=== PATIENT | female | born 1990 | race Caucasian/White ===

== ENCOUNTER 2021-11-18 17:23 | Inpatient (IN) | payer OTHER, SELFPAY ==
[2021-11-18 17:40] VITALS: RESP 16; TEMP 37.3
[2021-11-18 17:41] VITALS: BP 110/63; PULSE 85
[2021-11-18 17:44] VITALS: PULSE 82; O2SAT 97
[2021-11-18 18:06] VITALS: BMI 26.2
--- NOTE | 2021-11-18 18:23 | PM.OBHPLI ---
OB - H&P: HPI Labor/Induction History of Present Illness Time Seen by Provider: 18:00 Date Seen: 11/18/21 Chief Complaint: The patient is a 30 year old G1 para at 40 6/7 weeks gestation by LMP consistent with 10week US, who presents for postdates induction. Chief complaint: Maternity : 1 Para: 0 Date of last menstrual period: 02/05/21 Estimated date of delivery: 11/12/21 Gestational age based on last menstrual period: 40 Indications for induction: other (postdates induction) Narrative: Lisa Castillo is a 30 year old G1 female at 40 6/7 wks gestation who has been feeling well without concerns. Occasional 'tightening' nothing regular or painful. No LOF. No bleeding. No headaches or vision changes. Good FM. Has felt well, no recent illness History of Present Dating criteria: based on LMP Ultrasounds: normal mid trimester US and abnormal US findings (see below regarding 1st trimester US findings) Abnormal ultrasound findings: 1st trimester dating US done at [facility] showing 'possible thickening nuchal translucency'. pt saw [facility] and had NT US that was within normal limits. Prior initial US was thought to be done too early to technically measure nuchal translucency and NT US at [facility] was normal in appropriate timeframe. Narrative: presumed pyelonephritis 06/27/21, treated with rocephin 2 days and 14 days total abxs. No recurrence. Labs Blood type: A (+) positive Rubella: immune RPR/VDLR: nonreactive GBS status: negative HBsAG: negative Meds Home Medications and Allergies Home Medication Comments: PNV daily, Ferrous sulfate 325mg qod Allergies Allergy/AdvReac Type Severity Reaction Status Date / Time No Known Drug Allergies Allergy Verified 11/18/21 18:43 OB - H&P: Exam Physical Exam: Vital signs: Pulse BP Pulse Ox 85 110/63 97 11/18/21 17:41 11/18/21 17:41 11/18/21 17:44 Constitutional: Constitutional: no acute distress Routine HEENT Exam: Head: Present atraumatic, normal inspection and normocephalic Eye: Present normal appearance Comments: wearing mask Routine Respiratory Exam: Respiratory: Present CTA bilaterally Routine Cardiovascular Exam: Cardiovascular: RRR Routine Abdominal Exam: Comments: Gravid c/w dates Detailed Labor and Delivery Exam: Patient Gravid: yes Dilation (cm): 2 Effacement (%): 70 Cervix position: posterior Consistency: medium Comments: pt not feeling ctxs. [id number] on monitor Fetus (Single): Heart Rate Baseline: 140 Monitor Accelerations: Present Monitor Decelerations: None Slip Caster Variability: Moderate (11-25) Routine Extremities Exam: Extremities: Absent pedal edema Routine Neurological Exam: Present alert and oriented X3 Routine Psychiatric Exam: Present normal affect OB - Problem Based A/P Additional Plan (1) Post-dates : Status: Acute Plan Cook catheter induction with low dose pitocin protocol overnight. Discussed in detail in clinic and today again with pt and . All ?'s answered. They are in agreement with plan. Known GBS negative. Catheter placed. Delivery/Labor/Induction Plan Plan: induction Induction method: Intracervical balloon catheter
[2021-11-18 19:12] LABS: SARS PCR* Negative SARS-CoV-2 (Negative)
[2021-11-18 21:42] LABS: Basophils Absolute Auto 0.02 K/uL (0.00-0.30); Basophils Percent Auto 0.2 % (0.0-3.0); Eosinophils Absolute Auto 0.04 K/uL (0.00-0.50); Eosinophils Percent Auto 0.4 % (0.0-7.0); Hematocrit 34.3 % (33.0-51.0); Hemoglobin* 12.1 gm/dL (12.0-16.0); Immature Granulocytes Abs Auto 0.02 K/uL (0.00-0.30); Lymphocytes Percent Auto 18.9 % (20-44); Mean Corpuscular HGB Conc 35 gm/dL (32-36); Mean Corpuscular Hemoglobin 32 pg (26-34); Mean Corpuscular Volume 92 fL (80-100); Neutrophils Percent Auto 74.3 % (42.0-72.0); Platelet Count* 120 K/uL (140-440); RDW Coefficient of Variation % 12.6 % (11.5-15.5); Red Blood Count 3.75 m/uL (4.00-5.20)
[2021-11-18 21:44] LABS: Slide Review Reflex No
[2021-11-18 22:05] VITALS: RESP 16; TEMP 37
[2021-11-18 22:07] VITALS: BP 99/60; PULSE 67
[2021-11-18] MEDS: LACTATED RINGERS 1000 ML 1,000 ML 125 ML IV (22:09)
[2021-11-18] MEDS: OXYTOCIN 30 unit/500 ML in NS 30 UNIT/500 ML BAG IVPB (22:10)
[2021-11-18] MEDS: MORPHINE 10 MG/ML inj IM (22:23)
[2021-11-18] MEDS: hydrOXYzine pamoate 25 MG CAPSULE 100 MG PO (22:24)
[2021-11-18 23:06] VITALS: BP 109/72; PULSE 70; RESP 16; TEMP 36.8
[2021-11-19] VITALS (62 sets, daily range): BP systolic 89–159; BP diastolic 50–82; PULSE 60–134; RESP 16–20; TEMP 36.6–38.3; O2SAT 94–100
[2021-11-19] MEDS: LIDOCAINE 2% (PF) 5 ML VIAL EPIDURAL (01:42)
[2021-11-19] MEDS: ROPIVACAINE 0.2% 100 ml 100 ML 12 MG EPIDURAL (01:43)
[2021-11-19] MEDS: LACTATED RINGERS 1000 ML 1,000 ML 125 ML IV (01:43)
--- NOTE | 2021-11-19 02:05 | PM.ANBPRC ---
PFSH PFS Medical History (Updated 11/18/21 @ 18:59 by Iraida Hoyt DO) No significant medical problems Surgical History (Updated 11/18/21 @ 18:44 by Iraida Hoyt DO) H/O wisdom tooth extraction Family History Father Asthma Mother No problems noted. Paternal Grandfather Prostate cancer Pacemaker Social History (Updated 11/18/21 @ 18:47 by Iraida Hoyt DO) Narrative: to [employer]y. 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 Moved here from [place] Physical activity type: walking Smoking Status: Never smoker How often do you have a drink containing alcohol: never AUDIT-C Alcohol total score: 0 Non-prescribed substance use: denies use Meds Home Medications and Allergies Allergies Allergy/AdvReac Type Severity Reaction Status Date / Time No Known Drug Allergies Allergy Verified 11/18/21 18:43 Results Labs Labs: Laboratory Results - last 24 hr 11/18/21 11/18/21 11/18/21 18:02 21:35 21:35 WBC 9.40 RBC 3.75 L Hgb 12.1 Hct 34.3 MCV 92 MCH 32 MCHC 35 RDW Coeff of Zulema 12.6 Plt Count 120 L Neut % (Auto) 74.3 H Lymph % (Auto) 18.9 L Surry % (Auto) 6.0 Eos % (Auto) 0.4 Baso % (Auto) 0.2 Neut # (Auto) 7.00 Lymph # (Auto) 1.80 Surry # (Auto) 0.60 Eos # (Auto) 0.04 Baso # (Auto) 0.02 Abs Immat Gran (auto) 0.02 SARS-CoV-2 (PCR) Negative SARS-CoV-2 Blood Type A Positive Antibody Screen NEGATIVE Vital Signs Vital Signs: Last Vital Signs Temp 98.5 F 11/19/21 01:56 Pulse 86 11/19/21 02:01 Resp 16 11/19/21 01:56 BP 106/61 11/19/21 02:01 Pulse Ox 100 11/19/21 01:45 Weight: 69.354 kg Height: 162.56 cm Anesthesia Procedures Epidural Insertion Patient Location: OB Reason for Block: primary anesthetic Patient Position: sitting Performed By: Bebo Gongora Preanesthetic Checklist: IV checked, risks and benefits discussed, surgical consent, monitors and equipment checked, pre-op evaluation, timeout performed and anesthesia consent Prep: chlorhexidine gluconate Monitoring: blood pressure monitoring, account support associate, continuous pulse oximetry and heart rate Approach: midline Vertebral Space: lumbar (1-5) Needle Type: Tuohy needle Injection Technique: continuous catheter Needle gauge: 17 Needle Length (cm): 10 cm Needle Insertion Depth (cm): 6 Catheter Gauge: 19 Catheter Type: multi-orifice Catheter at skin depth (cm): 12 Test Dose Result: negative and lidocaine 1.5% with epinephrine 1 to 200,000 Events: other
[2021-11-19] MEDS: PHENYLEPHRINE 100 MCG/ML SYRINGE IVP ×2 (02:09→03:23)
--- NOTE | 2021-11-19 02:22 | PM.OBPNL ---
Pain Control Time Seen by Provider: 02:10 Date Seen: 11/19/21 Pain control: epidural Comments: pt just received epidural and is currently comfortable. She prev had SROM with clear fluid and decel with SROM and pitocin turned off with the decel in addition to typical maneuvers. FHT recovered. Cook catheter removed and RN checked and 7cm around that time. Pt requested and received epidural. Now back on 2 of pitocin. Contractions have decreased on monitor since SROM and epidural so adjusting pitocin as needed. Contractions Monitor mode: External Contraction pattern: Absent (not currently picking up, RN adjusting toco) Fetus (Single) Amniotic Membrane Status: SROM status: Category l Comments: Recieved morphine and Vistaril around 10:30 and noted to have decreased variability after that. Had the 1 significant decel with SROM and FHT recovered. Now with moderate variability but intermittent decreased variability since epidural. Received phenylephrine for low bp and bp improved. Assessment and Plan Assessment: active labor Plan: continue present management Comments: G1 at 41wks here for induction, now 7cm. Plan continue with expectant management. Discussed with pt, and nursing. All ?'s answered.
[2021-11-19] MEDS: ONDANSETRON 2 MG/ML inj 4 MG IV (02:52)
[2021-11-19] MEDS: miSOPROStoL 800 MCG/4 TABLET PR (07:30)
--- NOTE | 2021-11-19 08:35 | PM.OBPRCVD ---
Procedure Procedure Done: Global Events: Labor Induction (for postdates . ) Intrapartal Events: Labor Induction (Cook catheter inserted evening 11/18/21 for cervical ripening with low dose pitocin protocol overnight. SROM on 11/19/21 with clear fluid at 0050 and Cook removed and cervix 7cm. ) Induction method: Intracervical balloon catheter Delivery augmentation: pitocin Delivery monitor: external FHT Route of delivery: Episiotomy description: None Laceration description: Perineal - 2nd Degree (2nd degree midline perineal laceration that then extended into left labia. Lidocaine for anestheisa. 3-0 vicryl used to repair by standard technique. She also had periurethral lacerations that were hemostatic and so not repaired) Delivery repair: Vicryl Estimated blood loss (mL): 350 (The blood loss collection drape with bag had large hole in it and when went to look at EBL in bag, bloody fluid went on the floor. ) Anesthesia type: Epidural Complications: Pitocin IV was opened at delivery . Fundus was initially little boggy and therefore cytotec 800 was placed rectally. Fundus then remained firm and no further significant bleeding noted. Narrative: 30yo G1 at 40 6/7 wks gestation had cook catheter placed 11/18/21 evening. Low dose pitocin protocol was started overnight. SROM with clear fluid at 0050 and cook removed and cervix 7cm. Pt requested and received epidural. Went on to become complete at 246 and started pushing at 456. She continued to make progress pushing and went on to deliver 7#12oz female by [facility] at 705. had body cord that was reduced on moms lower abdomen. Cord was noted to be short. has spontaneous cry but then had decreased respiratory effort and color but responded well initially to stimulation. She continued to have decreased color and continued to need repeat stimulation so cord clamped and cut and taken to warmer. see infant resuscitation for details. maternal labor course significant for temp 100.9 x 2. No other noted symptoms or RF for chorio and mom did not receive antibiotics. placenta delivered spontaneously with 3VC and intact at 739. Pitocin had been started at delivery of and addition 800 cytotec given rectally as fundus initially little boggy but responded well to cytotec with pitocin. 2degree midline laceration repaired by standard technique. Periurethral tears hemostatic and not repaired. Currently mother and infant are now doing well and doing skin to skin. see resuscitation for details. getting antibiotics for sepsis rule out due to maternal temperature and need for resuscitation. Infant Gender: Female presentation: vertex Placental Delivery Description: Spontaneous Cord Description: 3 Vessels (3VC, placenta intact) and Around Body x1 (body cord reduced on placement of infant on mom's abdomen. Short cord noted. )
[2021-11-19] MEDS: IBUPROFEN 600 MG TABLET PO ×2 (14:13→20:31)
[2021-11-20 00:40] VITALS: BP 100/62; PULSE 63; RESP 18; TEMP 36.6; O2SAT 96
[2021-11-20] MEDS: IBUPROFEN 600 MG TABLET PO ×4 (02:35→20:54)
[2021-11-20 05:10] VITALS: BP 106/72; PULSE 54; RESP 16; TEMP 36.4; O2SAT 97
--- NOTE | 2021-11-20 06:56 | PM.OBPNVD1 ---
OB - PN:Subj Subjective Time Seen by Provider: 06:56 Date Seen: 11/20/21 Patient comments OB post-: no complaints and pain well controlled [place] infant status: feeding status: exclusively Narrative: pt seen in routine rounds. Had urinary retention yesterday and was cath'd x 1. Has been voiding well since with postvoid residual normal on recheck. Pt reports perineum sore, meds help. +ambulating, tolerating orals, voiding, stooling. . Lochia small per nursing notes. No concerns. OB - PN: Obj Exam Physical Exam: Vital signs: Temp Pulse Resp BP Pulse Ox O2 Del Method 97.6 F 54 L 16 106/72 97 11/20/21 05:10 11/20/21 05:10 11/20/21 05:10 11/20/21 05:10 11/20/21 05:10 11/20/21 05:10 Constitutional: Constitutional: no acute distress Routine HEENT Exam: Head: Present normal inspection Eye: Present normal appearance ENT: Present mucous membranes moist Routine Abdominal Exam: Fundus: Present firm Comments: FF below umbilicus Routine Psychiatric Exam: Psychiatric: Present normal affect, normal thought process, cooperative, good insight and good judgment OB - PN: A/P Vaginal Delivery Assessment and Plan (1) Post-dates : Status: Acute Assessment and Plan: continue routine postpatum care Plan Plan: routine care
[2021-11-20 08:22] LABS: Hemoglobin* 11.1 gm/dL (12.0-16.0)
[2021-11-20] MEDS: DOCUSATE SODIUM 100 MG CAPSULE PO (08:29)
[2021-11-20 10:30] VITALS: BP 123/65; PULSE 80; RESP 16; TEMP 37.1; O2SAT 96
[2021-11-20] MEDS: ACETAMINOPHEN 500 MG TABLET 1000 MG PO ×2 (11:37→17:29)
[2021-11-20 17:15] VITALS: BP 111/71; PULSE 73; RESP 16; TEMP 36.8; O2SAT 97
[2021-11-20 17:29] VITALS: TEMP 36.8
[2021-11-21 00:20] VITALS: BP 99/63; PULSE 73; RESP 16; TEMP 36.4; O2SAT 97
[2021-11-21] MEDS: IBUPROFEN 600 MG TABLET PO (06:12)
--- NOTE | 2021-11-21 06:42 | P.DS_ITS ---
DS: Providers Provider Time Seen by Provider: 06:42 Date Seen: 11/21/21 Date of admission: 11/18/21 17:23 Primary care physician: Iraida Hoyt DO Admitting Clinician: Iraida Hoyt DO Attending Physician on discharge: Iraida Hoyt DO Date of Discharge: 11/21/21 DS: Diagnosis Discharge Diagnosis (1) Post-dates : Status: Acute (2) (normal spontaneous vaginal delivery): Status: Acute DS: Medications Discharge Medications Other Medication Instructions: Continue over the counter ibuprofen and tylenol as needed. Stool softener Colace sent to pharmacy Exam Const: Vital Signs, click to edit/add: Vital Signs - 24 hr 11/20/21 10:30 11/20/21 17:29 11/20/21 17:15 Temperature 98.7 F 98.3 F 98.3 F Pulse Rate [Blood Pressure Cuff] 80 73 Respiratory Rate 16 16 Blood Pressure [Le ft Arm] 111/71 Blood Pressure [Ri ght Arm] 123/65 Pulse Oximetry 96 97 Oxygen Delivery Me thod Room Air Room Air 11/21/21 00:20 Temperature 97.6 F Pulse Rate [Blood Pressure Cuff] 73 Respiratory Rate 16 Blood Pressure [Le ft Arm] Blood Pressure [Ri ght Arm] 99/63 Pulse Oximetry 97 Oxygen Delivery Me thod Room Air OB - DS: Summary Hospital Course Hospital Course: The patient is a 30 year old G [] P [] at [] weeks gestation that was admitted to the Center on 11/18/21 for []. She had an [uncomplicated/complicated] [vaginal/] delivery. She delivered a viable [male/female] . She is [breast/bottle] feeding. the patient has done well. [place] Infant Gender: Male Time Spent with Patient Time attestation: Total time spent providing and/or coordinating discharge services: Discharge Plan Discharge Disposition: Home, Self-Care Date of Admission: 11/18/21 17:23 Attending Provider on Discharge: Iraida Hoyt Primary Care Provider: Iraida Hoyt Condition: Stable Anticipated Discharge Date/Time: 11/21/21 09:00 Discharge Medications: New acetaminophen 500 mg Tablet 1,000 mg PO Q6H PRNQty: 30 0RF ibuprofen 600 mg Tablet 600 mg PO Q6H PRNQty: 30 0RF docusate sodium 100 mg capsule 100 mg PO DAILY Qty: 30 0RF pramoxine 1 % Foam 1 applic topical QID PRNQty: 1 0RF Lanolin (HPA) 100 % Cream 1 applic topical Q1H PRNQty: 1 0RF Discharge Orders: Discharge Order (Routine); Ordered 11/21/21 Ordered By: Iraida Hoyt Patient Education: OB Vaginal/Breast Feeding Activity Level: Activity as Tolerated Activity Detail: pelvic rest x 6weeks Discharge Diet: Regular Follow Up Appointments: Iraida Hoyt, [Primary Care Provider] - (Follow up with Dr Hoyt for 6wk visit) [facility]: [facility] Info Instructions
[2021-11-21 09:30] VITALS: BP 110/66; PULSE 7; RESP 16; TEMP 36.7; O2SAT 97
[2021-11-21] MEDS: ACETAMINOPHEN 500 MG TABLET 1000 MG PO (09:40)
== END 2021-11-21 13:40 | disposition home or self-care (01) | DRG 807 ==
PROVIDERS: Admitting Provider Family Medicine; PCP Family Medicine; Visit Provider Family Medicine
DX: O48.0 Post-term pregnancy (principal); Z37.0 Single live birth; O70.1 Second degree perineal laceration during delivery; R33.9 Retention of urine, unspecified; Z3A.40 40 weeks gestation of pregnancy
CPT/HCPCS: 1967; 36415; 51798; 59200; 85018; 85025; 86850; 86900; 86901; 87635; A9270; C1726; J2270; J2370; J2405; J2795; J3010; J7120

== ENCOUNTER 2024-01-15 05:57 | Inpatient (IN) | payer OTHER, SELFPAY ==
[2024-01-15] VITALS (61 sets, daily range): BP systolic 96–136; BP diastolic 50–87; PULSE 67–116; RESP 18; TEMP 36.7–36.9; O2SAT 92–100; BMI 27.4
--- OUTSIDE RECORDS SUMMARY | 2024-01-15 06:01 | XMS_ITS | Clinical Summary ---
Author Organization [facility] Address [place], [place] [address] Care Team Providers Care Bicycle Technician Name Role Phone Isidro Hoyt DO Primary Care Provider [phone] Allergies No known active allergies Medications Medication Sig Dispensed Refills Start Date End Date Status vit 28/iron fum/folic (multivitamin folic acid 1 mg) Take 1 Tablet by mouth once daily. 0 04/11/2021 Active Active Problems Problem Noted Date Diagnosed Date affected by growth restriction 0 09/16/2023 Echogenic intracardiac focus of fetus on ultrasound 09/16/2023 Suspected condition not found 09/16/2023 [facility], Supervision of high-risk 08/29/19 24 Overview (10/21/2023): Lisa Jonathan : 1990 REFERRING PROVIDER/CLINIC LOCATION/FAX #: Isid[facility] MD approves scheduling of recommended ultrasounds/testing: Yes [facility] ULTRASOUND/TESTING PATIENT Support person name: Fredy ULTRASOUND TYPE: Growth REASON FOR VISIT: -resolved 09/16/23 - follow up assessment of growth in 4- 6 weeks. NEXT VISIT ALERTS: Final JOHN by LMP LMP Date: Patient's last menstrual period was 04/03/2023. JOHN: 01/08/24 Early US: Date: 06/24/23 GA: 11w1d JOHN: 01/12/24 PrePregnancy Weight: 139lb Height: 5'4 BMI: 23 PLANS & FUTURE APPOINTMENTS: ULTRASOUND/GROWTH PLAN: 09/15 per ML follow up assessment of growth in 4-6 weeks. - Through: - Growth: Next TESTING PLAN: - Testing: Through DELIVERY PLAN: - Scheduled delivery: - Preferred delivery location: PRIMARY DIAGNOSIS: 32 y.o. Estimated Date of Delivery: 01/08/24 Resolved 09/15 -not seen on 09/15 US MATERNAL 2021 vaginal delivery PREVIOUS ULTRASOUNDS: 10/27/23 29w4d 09/16/23 23w5d EFW 593 grams, percentile: 32. 08/28/23 21w0d EFW 314 grams, percentile: 5 (PCP) ECHO: SPECIALISTS/CONSULTS: Include: Specialty MD Clinic Name Phone# [place] and ADDED TO PATIENT CARE TEAM GENETICS: NIPS: Low Risk Declined GC visit CARE COORDINATION: PERTINENT LABS: Labs reviewed? Yes Normal? Yes Blood type: A Rh Positive Antibody screen: Negative PERTINENT MEDS: PROCEDURES: IF FGR <10% or EFW <2000 grams: Add FGRPCOM PLAN OF CARE: 09/11/23 per ML -Return to primary provider for continued care. -No alterations in the delivery plan are necessary. -No medication changes are indicated. -No surveillance suggested. -Recommend follow up assessment of growth in 4-6 weeks. This can be done locally or with [facility]. -Patient directed to call [facility]PP within 2 business days to schedule follow up if she prefers to have it done here, orders placed. care, subsequent in [facility] 07/07/2023 Overview (01/07/2024): JOHN based on LMP c/with 1st trimester US Estimated Date of Delivery: 01/08/24 Patient's last menstrual period was 04/03/2023. Had large subchorionic hemorrage first trimester and patient thought miscarried but follow up US with viable GBS: GROUP B STREPTOCOCCUS Date Value Ref Range Status 12/17/2023 NOT DETECTED NOT DETECTED Final Comment: Note per CDC guidelines optimal recovery is achieved by swabbing both the lower vagina and rectum (through the anal sphincter). 28wk labs: GLUCOSE,GESTATIONAL Date Value Ref Range Status 10/13/2023 111 70 - 139 mg/dL Final HEMOGLOBIN Date Value Ref Range Status 10/13/2023 12.4 12.0 - 16.0 g/dL Final TREPONEMA PALLIDUM Date Value Ref Range Status 10/13/2023 Non-Reactive Non-Reactive Final Last Tdap: 10/13/23 Last Flu vaccine: 12/30/23 RSV vaccine: 12/04/23 OB Labs: ABORH Date Value Ref Range Status 07/07/2023 A Rh Positive Final ANTIBODY SCREEN Date Value Ref Range Status 07/07/2023 Negative Negative Final TREPONEMA PALLIDUM Date Value Ref Range Status 07/07/2023 Non-Reactive Non-Reactive Final RUBELLA IGG ANTIBODY Date Value Ref Range Status 07/07/2023 17.20 >=1.00 Index Final INTERPRETATION Date Value Ref Range Status 07/07/2023 Positive Final Comment: Presence of detectable IgG antibodies. A positive result generally indicates exposure to the virus or previous vaccination, but is not an indication of active infection or stage of disease. HBSAG Date Value Ref Range Status 07/07/2023 Nonreactive Nonreactive Final HIV-1/HIV-2 SCREEN Date Value Ref Range Status 07/07/2023 Non-Reactive Non-Reactive Final Comment: HIV-1 p24 and HIV-1/HIV-2 Ab Not Detected. HEMOGLOBIN Date Value Ref Range Status 07/07/2023 13.0 12.0 - 16.0 g/dL Final CHLAMYDIA PROBE Date Value Ref Range Status 07/07/2023 Negative Final N GONORRHOEAE PROBE Date Value Ref Range Status 07/07/2023 Negative Final No Known Allergies OB History Para Term AB Living 3 1 1 0 1 0 SAB IAB Ectopic Multiple Live Births 1 0 0 0 0 # Outcome Date GA Lbr Seth/2nd Weight Sex Delivery Anes PTL Lv 3 Current 2 SAB 02/2023 1 Term 11/19/21 41w0d Vag Past Medical History: . Date No Significant Past Medical History Pyelonephritis Varicella as child Past Surgical History: . Laterality Date WISDOM TEETH EXTRACTION Problems (from 05/28/23 to present) No problems associated with this episode. Jessica Vega RN ....07/08/2023 12:57 PM Encounter for screening Estimated Date of Delivery Comme nts Yes 01/08/2024 Based on last me nstrual period of 04/03/2023 Resolved Problems Problem Noted Date Diagnosed Date Resolved Date 04/16/2021 03/11/2023 Overview (11/01/2021): It's a GIRL! GBS NEGATIVE Component Latest Ref Rng & Units 10/16/2021 Vaginal/Rectal OB Strep B PCR Negative Plans epidural. Estimated Date of Delivery: 11/12/21 Patient's last menstrual period was 02/05/2021. Has consult with genetics and perinatology regarding possibly thickened NT on initial dating US at [facility]. See consult for details, in brief, repeat NT US was wnl and no further testing recommended. Had resumed pyelonephritis 06/27/21, treated with rocephin x 2 days and 14days total antibiotics. Last Tdap- 08/22/2021 Last Flu vaccine- 02/16/2021 Glucose (GTT) result- Component Latest Ref Rng & Units 08/07/2021 HEMOGLOBIN 12.0 - 16.0 g/dL 11.8 (L) MCV 80 - 100 fL 95 GLUCOSE,GESTATIONAL 65 - 140 mg/dL 115 TREPONEMA PALLIDUM Negative Negative 20 week US: FINDINGS: Sonographic imaging demonstrates a single living intrauterine gestation. Fetus demonstrates a regular cardiac rate of 147 beats per minute. Fetus has a transverse position, head maternal right. The placenta lies anterior without evidence of placenta previa. Amniotic fluid volume appears normal. Single deepest vertical pocket: 4.9 cm. The cervix is closed and measures 4.0 cm in length. The composite ultrasound gestational age is calculated at 19 weeks 6 days with an estimated sonographic due date of 11/14/2021. No Known Allergies OB History Para Term AB Living 1 0 0 0 0 0 SAB IAB Ectopic Multiple Live Births 0 0 0 0 0 # Outcome Date GA Lbr Seth/2nd Weight Sex Delivery Anes PTL Lv 1 Current Create lab flowsheet for OB labs- Component Latest Ref Rng & Units 05/09/2021 05/09/2021 05/09/2021 8:18 AM 8:18 AM 8:18 AM ANTIBODY SCREEN Negative Negative SPECIMEN EXPIRATION DATE/TIME 05/12/21 23:59 HEMOGLOBIN 12.0 - 16.0 g/dL 13.1 MCV 80 - 100 fL 90 RUBELLA IGG ANTIBODY Positive 22.50 ABORH A Rh Positive TREPONEMA PALLIDUM Negative Negative HIV-1/HIV-2 ANTIBODY Non-Reactive Non-Reactive HBSAG Nonreactive Nonreactive Past Medical History: . Date ? ? No Significant Past Medical History Past Surgical History: . Laterality Date ? ? WISDOM TEETH EXTRACTION No data on file. Problems (from 04/11/21 to present) No problems associated with this episode. Vandana Rodriguez RN.....04/16/2021 12:54 PM Encounters Date Type Department Care Team Description 01/13/2024 8:20 AM CDT OB Encounter [facility] [place] [address] Isidro Hoyt, DO Care (40 wks 5 days) 01/13/2024 Travel 01/08/2024 Travel 01/06/2024 8:20 AM CDT [facility] [place] [address] Isidro Hoyt DO Care (39 wks 5 days) 01/06/2024 Travel 01/04/2024 Travel 12/30/2023 9:10 AM CDT OB Encounter [address] [place] [address] Isidro Hoyt DO Care (38 wks 5 days); Immunization/Inject ion 12/30/2023 Travel 12/25/2023 Travel 12/23/2023 8:20 AM CDT OB Encounter [facility] [place] [address] Isidro Hoyt DO Care (37 wks 5 days) 12/22/2023 Travel 12/16/2023 9:00 AM CDT OB Encounter [address] [place] [address] Portia Shelton MD Care (ob no concerns) 12/15/2023 Travel 12/04/2023 Nurse/Clinic Staff Only [facility] [place] [address] Isidro Hoyt DO Immunization/Inject ion 12/03/2023 8:20 AM CDT OB Encounter [facility] [address] Isidro Hoyt DO Care (34 weeks 6 days) 12/02/2023 Travel 11/11/2023 8:20 AM CDT OB Encounter [facility] [address] [facility] [place] [address] Isidro Hoyt DO Care (31 weeks 5 days/Back stiffness in the morning for a few weeks) 11/11/2023 Travel 10/28/2023 1:05 PM CDT OB Encounter [facility] [address] [facility] [place] [address] Isidro Hoyt DO Care (routine OB ) 10/27/2023 8:55 AM CDT - 10/27/2023 11:59 PM CDT Hospital Encounter [facility] [address] [address] Jayson Tovar, Supervision of high risk in third trimester (Primary Dx); affected by growth restriction; Suspected problem with growth not found 10/27/2023 Travel from Last 3 Months Immunizations Name Administration Dates Next Due COVID-19 vaccine (Pfizer-Bio NTech 30mcg/0.3mL) 12YO+ BIVALENT PF, MDV 01/15/2022 COVID-19 vaccine (Pfizer-Bio NTech 30mcg/0.3mL) PF, MDV 05/16/2020,04/25/2020 DTP 02/01/1993 DTP-HIB 06/01/1993,04/09/1993 DTaP 01/05/1998,03/14/1994 DTaP-IPV (Kinrix) 06/01/1993,04/09/1993 HIB PRP-T (ActHIB,Hiberix) 03/14/1994,02/01/1993 Hepatitis A (Adult) 01/15/2022,01/05/2021 Hepatitis B (Adult) 04/10/2018 Hepatitis B (Peds) 1990 Hepatitis B, Unspecified 06/01/1993,02/01/1993 Human Papilloma Virus Vaccine 06/22/2007, 007,09/23/2006 INFLUENZA, IIV3 PF (AGE >= 6 MO) 12/30/2023 Influenza A (H1N1), Live Intranasal 03/15/2009 Influenza Virus, Unspecified 04/06/2013,03/20/20 12 Influenza, IIV3 (Age 6-35 mos) 01/18/2016 Influenza, IIV3 (Age >=3 years) 02/10/2014,12/19,12/25/2009 Influenza, IIV4 12/10/2022, 2,01/07/2020,02/14,01/20/2018,01/17/2017,02/10/2014 Influenza,CCIIV4 PRESERV FREE 02/16/2021, 020 MMR 01/05/1998,03/14/1994 Meningococcal Vaccine (Menactra) 05/09/2011,10/29 Oral Polio Vaccine 01/05/1998, 4,04/09/1993,02/01 RSV, Bivalent Vaccine Recons tituted (Abrysvo 120MCG/0.5mL) 12/04/2023 Td (Age >=7 Years) 09/14/2015 Tdap 10/13/2023,08/22/2021,11/13/2004 Varicella Vaccine 12/16/1994 Family History Medical History Relation Name Comments Asthma Brother Good Health Daughter Asthma Father Hyperlipidemia Father Sleep apnea Father Thyroid Disease Father Alzheimer's disease Maternal Grandmother No Known Problems Mother Diabetes Paternal Aunt type 2 Cancer-prostate Paternal Grandfather Stroke Paternal Grandfather Heart Disease Paternal Grandmother has a pacemaker Irregular heart beat Paternal Grandmother pacemaker Thyroid Disease Paternal Grandmother Cancer-prostate Paternal Uncle Relation Name Status Comments Brother Alive Daughter Alive Father Alive Maternal Grandfather Maternal Grandmother Mother Alive Paternal Aunt Paternal Grandfather Paternal Grandmother Alive Paternal Uncle Social History Tobacco Use Types Packs/Day Years Used Date Smoking Tobacco: Never Smokeless Tobacco: Never Tobacco Cessation:Counseling Given: No Alcohol Use Standard Drinks/Week Comments Not Currently 0 (1 standard drink = 0.6 oz pur e alcohol) PHQ-2 Answer Date Recorded PHQ-2 TOTAL SCORE 0 12/26/2022 Social Connections Answer Date Recorded Frequency of Communication with Friends and Fami ly 0 12/03/2023 Financial Resource Strain Answer Date R ecorded Difficulty of Paying Living Expenses 3 12/03/2023 Difficulty of Paying Living Expenses Not on file 12/03/2023 Food Insecurity Answer Date Recorded Worried About Running Out of Food in the Last Ye ar 1 12/03/2023 Transportation Needs Answer Date Record ed Lack of Transportation (Medical) 1 12/03/2023 Housing Stability Answer Date Recorded Unable to Pay for Housing in the Last Year 1 12/03/2023 Estimated Date of Delivery Comme nts Yes 01/08/2024 Based on last me nstrual period of 04/03/2023 Sex and Gender Information Value Date Recorded Sex Assigned at Not on file Gender Identity Not on file Sexual Orientation Not on file Obstetrics History Para Term AB IAB SAB Ectopic Multiple Livin g Live Births 3 1 1 0 1 0 1 0 0 0 0 Date Outcome GA Total Labor Labor/2nd/3rd Weight Sex Type Anes PTL Erica A1 A5 Name Clin 022 Term 41w0 d Vag 02/2023 SAB Current Summary Episode Dates Number of Fetuses Estimated Date of Delivery 05/28/2023 - Present (01/15/2024) 1 01/08/2024 (set by eVro Corbett on 05/28/2023 based on Last Menstrual Period on 04/03/2023) Dating Summary Based On JOHN GA Diff Last Menstrual Period on 04/03/2023 01/08/2024 Working Ultrasound on 06/24/2023 01/12/2024 -4d GA:11w1d Vitals Date GA Fund Present FHR Mvmt BP Weight Edema Alb Glu Ket Dil/ Eff/Sta 4 11w5d Inpatient data not displayed here. See encounter summary. 4 23w5d Inpatient data not displayed here. See encounter summary. 4 29w4d Inpatient data not displayed here. See encounter summary. Notes Progress Notes - OB Encounte r - 01/13/2024 - GA:40w5d 01/13/2024 - 40w5d - Isidro Hoyt DO Patient feeling well at 40 5/7. No concerns. Has occasional ctxs but nothing regular. No abdominal pain/vaginal bleeding. No headaches or vision changes. Scheduled for postdates induction tomorrow night. Cervix today 2cm/50%/medium consistency/posterior but less posterior then previously. Muniz = 3 Plan cytotec induction, discussed at length today. All ?'s answered. Typical remaining course reviewed. Warning signs/labor signs reviewed. Followup for induction tomorrow night Progress Notes - OB Encounte r - 01/06/2024 - GA:39w5d 01/06/2024 - 39w5d - Isidro Hoyt DO Patient here for routine visit at 39w5d. Having occasional ctxs. Lost mucous plug last week. No LOF. No abdominal pain/vaginal bleeding. No headaches or vision changes. Cervix today posterior and high, externalos 1cm. Typical remaining course reviewed. Warning signs/labor signs reviewed. Discussed postdates induction by 41wks if not delivered and reviewed. Will put on schedule in case needed She is on induction schedule at [facility] for next Fri01/14/24 at 5pm. Plan cytotec and discussed with patient. Followup in 1weeks, sooner if needed Progress Notes - OB Encounte r - 12/30/2023 - GA:38w5d 12/30/2023 - 38wd - Isidro Hoyt DO Patient feeling well at 38 5/7wks. No concerns. good FM Would like cervix checked today. Has had some contractions but nothing persistent. No abdominal pain/vaginal bleeding. No LOF. No headaches or vision changes. Cervix posterior and high, externalos 1cm, soft. Typical remaining course reviewed. Warning signs/labor signs reviewed. Followup in 1week, sooner if needed Progress Notes - OB Encounte r - 12/23/2023 - GA:37w5d 12/23/2023 - 37w5d - Isidro Hoyt DO Patient feeling well at 37 5/7wks. Feels like baby may have dropped lower. Gets scott khan, nothing regular. Thinks maybe occasional contractions. Did have 'tiny string' and mucous noted in toilet, no actual bleeding. Headache with sinus symptoms, headache resolved, sinus symptoms improving. No vision changes. +FM GBS NEGATIVE Cephalic position confirmed by bedside handheld US Typical remaining course reviewed. Warning signs/labor signs reviewed. Discussed option cervical checks and membrane striping and data on this. Patient declines today. Followup in 1week, sooner if needed [facility] GA:36w5d 12/16/2023 - 36w5d - Portia Shelton MD Patient feeling well at 36 5/7 weeks. No concerns. +FM No abdominal pain/contractions/vaginal bleeding. Has [place] Khan. No headaches, vision changes. Typical remaining course reviewed. Warning signs/labor signs reviewed. She did get the RSV vaccine and planning for flu vaccine later in month. GBS today. Followup in 1 weeks, sooner if needed Portia Shelton MD .................... 12/16/2023 9:12 AM [facility] - GA:34w6d 12/03/2023 - 34w6d - Isidro Hoyt DO Patient feeling well at 34 6/7 weeks. No concerns. +FM No abdominal pain/contractions/vaginal bleeding. Gets [place] Khan at times. Headache but resolved on own. No persistent headaches. No headaches or vision changes. Typical remaining course reviewed. Warning signs/labor signs reviewed. Recommend RSV vaccine today. Discussed reasons. patient wants to talk with and will message to get scheduled if wants. Recommend flu vaccine as well. She wants to discuss with GBS next apt. Followup in 2weeks, sooner if needed Progress Notes - OB Encounte r - 11/11/2023 - GA:31w5d 11/11/2023 - 31w5d - Isidro Hoyt DO Patient here for OB visit at 31 5/7. Noticing back stiff in morning. Better throughout day. Discussed home stretching +FM No abdominal pain/contractions/vaginal bleeding. No headaches or vision changes. Typical remaining course reviewed. Warning signs/labor signs reviewed Filled out online registration at hospital. Did plan. Followup in 2weeks, sooner if needed Progress Notes - OB Encounte r - 10/28/2023 - GA:29w5d 10/28/2023 - 29w5d - Isidro Hoyt DO Patient feeling well at 29 5/7wks. Had follow up growth US yesterday. EFW 33%, no further US's indicated per MPP note +FM. No abdominal pain/contractions/vaginal bleeding. No headaches or vision changes. Typical remaining course reviewed. Warning signs/labor signs reviewed. Discussed online registration and plan. Plans epidural Followup in 2weeks, sooner if needed Progress Notes - OB Encounte r - 10/13/2023 - GA:27w4d 10/13/2023 - 27w4d - Isidro Hoyt DO Patient feeling well at 27 4/7. Doing GTT today. Not on iron supplement. Is taking PNV. No concerns. Has noticed skin tags along areola. Good FM. Has follow up US in [place] 10/27/23. No abdominal pain/contractions/vaginal bleeding. No headaches or vision changes. Typical remaining course reviewed. Warning signs/labor signs reviewed. TdaP today Followup in 2weeks, sooner if needed Progress Notes - OB Encounte r - 09/23/2023 - GA:24w5d 09/23/2023 - 24wd - Isidro Hoyt DO Patient here at 24 5/7wks gestation. Feeling good overall. Getting some reflux. Says not bad enough to take anything for. +FM. No abdominal pain/contractions/vaginal bleeding. One headache, resolved on its own. no vision changes. Had level 2 US 09/16/23 for FGR and Left EIF. Previously noted EIF was not seen. EFW was 32% and follow up growth US was recommend in 4-6wks. Patient plans to schedule with [facility]. Typical remaining course reviewed. Warning signs/labor signs reviewed. Followup in 4weeks with GTT/labs, sooner if needed Progress Notes - OB Encounte r - 08/28/2023 - GA:21w0d 08/28/2023 - w0d - Isidro Hoyt DO Patient feeling well at 21wks. anatomy US today. Tech report notes echogenic foci left ventricle of heart. Official report pending. Reviewed potential causes and evaluation recommended. Discussed recommendation for level 2 US and ignacio. Per UTD, EIFs are not associated with myocardial dysfunction or structural cardiac anomalies. An isolated EIF in the setting of an otherwise normal detailed structural survey is considered a normal variant in the setting of a low-risk cell-free DNA screen All ?'s answered Typical remaining course reviewed. Warning signs/labor signs reviewed. Followup in 4weeks, sooner if needed Progress Notes - OB Encounte r - 07/29/2023 - GA:16w5d 07/29/2023 - 16w5d - Isidro Hoyt DO Patient here at 16w5d with concerns for UTI. Noticed increased frequency yesterday afternoon. +urgency, frequency. Hematuria this morning. No Fevers/N/V. No flank pain. Low back pain at times. No abdominal pain/contractions/vaginal bleeding. Headache last night, resolved on own. no vision changes. Has felt ?FM at night couple times. Vitals reviewed. On exam, no CVA ttp. FHT's 150's, uterus nttp. UA c/with UTI, will treat with antibiotics. Warning s/s reviewed. Has anatomy US set up. Typical remaining course reviewed. Warning signs/labor signs reviewed. Followup in 4weeks, sooner if needed Progress Notes - OB Encounte r - 07/07/2023 - GA:13w4d 07/07/2023 - w4d - Isidro Hoyt DO Patient is here with for follow up OB visit. Was initially seen 05/28/23 for initial OB. She then had vaginal bleeding beginning of May multiple times and to extent she was certain she had miscarried. We discussed HCG testing then and she declined. On follow up lab testing due to second miscarriage, TSH done and HCG added to confirm. HCG came back consistent with likely current and repeat US ordered and 06/24/23 showed: IMPRESSION: 1. Single fetus with ultrasound dating of 11 weeks 1 day, JOHN 01/12/2024. 2. Given LMP 04/03/2023. Dating by LMP 11 weeks 5 days. 3. Large focus of subchorionic hemorrhage. No uterine wall abnormality. Dating by LMP = 01/08/24 which is consistent with above US. Since then patient reports brown discharge most days once a day. No bright red bleeding for about a month. Occasional nausea in morning. Taking PNV. Tired. No abdominal pain/contractions. Mild back aches at times in morning. One headache resolved on own. Typical remaining course reviewed. Warning signs/labor signs reviewed. labs ordered. Ignacio discussed and declined. Offered follow up US prior to anatomy if desired due to history large RODNEY. Patient felt comfortable with clinic office visit follow up with dopplers. anatomy ordered for 20-22 wks Followup in 3weeks, sooner if needed Progress Notes - OB Encounte r - 05/28/2023 - GA:7w6d 05/28/2023 - 7wd - Isidro Hoyt DO FIRST OB VISIT HPI: Lisa Castillo is a 32 y.o. female at 7w6d with sanchez intrauterine here today for a initial OB exam. She is here with . 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 No history of STIs OB History Para Term AB Living 3 1 1 0 1 0 SAB IAB Ectopic Multiple Live Births 1 0 0 0 0 # Outcome Date GA Lbr Seth/2nd Weight Sex Delivery Anes PTL Lv 3 Current 2 SAB 02/2023 1 Term 11/19/21 41w0d Vag Past Medical History: . Date No Significant Past Medical History Pyelonephritis Varicella as child Past Surgical History: . Laterality Date WISDOM TEETH EXTRACTION Family History Problem Relation Age of Onset No Known Problems Mother Hyperlipidemia Father Asthma Father Sleep apnea Father Thyroid Disease Father Asthma Brother Good Health Daughter Diabetes Paternal Aunt type 2 Cancer-prostate Paternal Uncle Alzheimer's disease Maternal Grandmother Heart Disease Paternal Grandmother has a pacemaker Thyroid Disease Paternal Grandmother Irregular heart beat Paternal Grandmother pacemaker Stroke Paternal Grandfather Cancer-prostate Paternal Grandfather Social History Tobacco Use Smoking status: Never Smokeless tobacco: Never Substance Use Topics Alcohol use: Never Current Outpatient Medications Medication Sig cholecalciferol (Vitamin D-3) 2,000 unit capsule Take 5,000 units by mouth once daily. taking 1 5000 unit capsule vit 28/iron fum/folic (multivitamin folic acid 1 mg) Take 1 Tablet by mouth once daily. No current facility-administered medications for this visit. Medications have been reviewed by me and are current to the best of my knowledge and ability. ALLERGIES Patient has no known allergies. MENTAL HEALTH HISTORY History of psychiatric diagnosis: None Current mental health provider: not applicable Currently taking any psychiatric medications? Not Applicable REVIEW OF SYSTEMS Comprehensive ROS complete and negative other than noted in HPI and on OB Questionnaire. PHYSICAL EXAM BP 121/77 (Cuff Site: Right Arm, Position: Sitting, Cuff Size: Adult Regular) Pulse 70 Wt 60.5 kg (133 lb 6.4 oz) LMP 04/03/2023 SpO2 99% No BMI 22.54 kg/m?? General: Pleasant female in no acute distress, alert and appropriate HEENT: Conjunctiva clear, nares patent, TMs normal, mucous memory is moist Neck: No lymphadenopathy or thyromegaly Heart: Regular rate and rhythm Lungs: Clear tissue bilaterally Abdomen: Nontender. deferred Extremities: No edema Skin: No concerning lesions Psych: normal affect JOHN: JOHN at 01/07/14 based on LMP ASSESSMENT/PLAN 32yo at 7 6/7wks gestation by LMP here for first visit. 1. Discussed orientation,general information,lifestyle,nutrition,exercise,warning signs,lab testing. Questions answered. 2. Typical remaining course reviewed. 3. Ultrasound for dating ordered. 4. labs ordered 5. Need to discuss risk screening at next apt. Followup in 4 weeks, sooner if needed Isidro Hoyt D.O. 05/28/2023 8:43 PM. ASPIRIN CANDIDATE EVALUATION One or more of the following: Previous with preeclampsia, especially early onset and with and adverse outcome. Multifetal gestation Chronic hypertension Type 1 or 2 diabetes Chronic kidney disease Autoimmune disease (antiphospholipid syndrome, systemic lupus erythematosus) Two or more of the following: Nulliparity Obesity (body mass index > 30 kg/m2) Family history of preeclampsia in mother or sister Age greater than or equal to 35 years Sociodemographic characteristics (, low socioeconomic level) Personal risk factors (eg, history of low weight or small for gestational age, previous adverse outcome, > 10 year interval) BASE ARCHITECT Last Filed Vital Signs Vital Sign Reading Time Taken Comments Blood Pressure 115/75 01/13/2024 8:32 AM CDT Pulse 87 01/13/2024 8:32 AM CDT Temperature 36.7 ??C (98 ??F) 06/28/2021 2:28 PM CDT Respiratory Rate - - Oxygen Saturation 99% 01/13/2024 8:32 AM CDT Inhaled Oxygen Concentration - - Weight 73.9 kg (163 lb) 01/13/2024 8:32 AM CDT Height 163.8 cm (5' 4.5) 12/26/2022 3:21 PM CDT Body Mass Index 27.55 12/26/2022 3:21 PM CDT Plan of Treatment Health Maintenance Due Date Last Done Comments Pap test for age 21-65 11/11/2023 11/10/2020 COVID-19 vaccine series ( season) 2023 01/15/2022, 04/29/2021, 05/16/2020, Additional history exists BMI (ht and wt on same day) for age 18+ 12/27/2023 12/26/2022, 11/13/2022, 11/10/2020, Additional history exists Depression screening for age 12+ 12/27/2023 12/26/2022, 11/13/2022, 01/15/2022, Additional history exists Tetanus booster 10/12/2033 10/13/2023, 07/30, 09/14/2015, Additional history exists Hepatitis C screening for age 18-79 Completed 02/25/2023, 11/05/2019 HIV for age 15-65 Completed 07/07/2023, , 05/09/2021, Additional history exists Tdap Completed 10/13/2023, 07/30, 11/13/2004 RSV vaccine for adults or Completed 12/04/2023 Influenza for age 9-49 Completed , 12/10/2022, 01/15/2022, Additional history exists Pneumococcal series for age 6-64 Aged Out No longer eligible based on patient's age to complete this topic Procedures Procedure Name Priority Date/Time Associated Diagnosis Comments VAGINAL/RECTAL OB STREP PCR Routine 12/17/2023 2:02 PM CDT care, subsequent in third trimester US OB FOLLOW UP ANY TRI SINGLE TA Routine 10/27/2023 9:25 AM CDT affected by growth restriction Suspected problem with growth not found ANTI HIV 1/2 Routine 07/07/2023 1:55 PM CDT Encounter for care in first trimester of first ANTI HCV Routine 02/25/2023 1:47 PM DATABASE ARCHITECT Encounter for supervision of other normal in first trimester LOCAL FLATBED DRIVER THIN PREP PAP SCREEN IMAGED Routine 11/10/2020 8:58 AM CDT Screening for malignant neoplasm of cervix from Last 3 Months or Most Recently Relevant to Health Maintenance Results * VAGINAL/RECTAL OB STREP PCR (12/17/2023 2:02 PM CDT) SOURCE VR [facility] GROUP B STREPTOCOCCUS NOT DETECTED NOT DETECTED [facility] Comment: ? Note per CDC guidelines optimal recovery is achieved by swabbing both the lower vagina and rectum (through the anal sphincter). Other (Vaginal/Rectal) 12/17/2023 2:02 PM CDT 12/17/2023 2:04 PM CDT Portia Shelton MD [employer] [facility] [address] [place] [address], [id number] [facility] [place] [address] * Growth Follow Up Any Trimester (CPT 78235) If BPP w/NST needed use Testing section for order (10/27/2023 9:25 AM CDT) Anatomical Region Laterality Modality , 2or 3 TRIMESTER Ultrasound 10/27/2023 8:55 AM CDT Narrative 10/27/2023 9:27 AM CDT Referred By: ISIDRO ??DAVID ??DO Indications Code 29 weeks gestation of Z3A.29 FGR and Left EIF found on outside ultrasound, resolved 09/16/20232021 vaginal delivery Low Risk NIPT IMPRESSIONS: Intrauterine at 29w 4d. presentation is Breech. EFW 1374 grams, percentile: 33. Deepest Vertical Pocket of amniotic fluid: 5.07 ??cm. ? No major anomalies identified on limited survey. Appropriate symmetric growth. Placental location: Anterior. There is no evidence of placenta previa. RECOMMENDATIONS: -Return to primary OB provider for continued care. -No alterations in the delivery plan are necessary. -No medication changes are indicated. -No surveillance suggested. ?? -Present findings are reassuring. No further ultrasounds are necessary for the present indication. COMMENT: The patient was seen by the Perinatologist today. ??The previous ultrasound and the records were reviewed. ??The results of today's ultrasound were communicated to the patient. New government regulations related to the Cures act require that this note be released to the patient immediately, sometimes before the referring provider has been contacted. ??A portion of the information was presented verbally to the patient. ??The remainder is submitted as background for the referring provider, to be discussed as needed. Medical Decision Making: Low Complexity [address]5412 ?Limited Diagnoses including with previous growth restriction. ?Limited Data including review of prior ultrasound and review of prior external notes ?Minimal risk of morbidity or mortality to the fetus from additional testing. Services Provided: Procedures Code FOLLOW UP GROWTH 18342.0 Procedure Note Nayeli Cruz MD - 10/27/2023 Referred By: ISIDRO HOYT DO IndicationsCode 29 weeks gestation of [id number].29 FGR and Left EIF found on outside ultrasound, resolved 09/16/20232021 vaginal delivery Low Risk NIPT IMPRESSIONS: Intrauterine at 29w 4d. presentation is Breech. EFW 1374 grams, percentile: 33. Deepest Vertical Pocket of amniotic fluid: 5.07 cm. No major anomalies identified on limited survey. Appropriate symmetric growth. Placental location: Anterior. There is no evidence of placenta previa. RECOMMENDATIONS: -Return to primary OB provider for continued care. -No alterations in the delivery plan are necessary. -No medication changes are indicated. -No surveillance suggested. -Present findings are reassuring. No further ultrasounds are necessary forthe present indication. COMMENT: The patient was seen by the Perinatologist today. The previous ultrasoundand the records were reviewed. The results of today's ultrasound werecommunicated to the patient. New government regulations related to the Cures act requirethat this note be released to the patient immediately, sometimes before the referringprovider has been contacted. A portion of the information was presented verbally to thepatient. The remainder is submitted as background for the referring provider, to be discussed asneeded. Medical Decision Making: Low Complexity 49895 Limited Diagnoses including with previous growthrestriction. Limited Data including review of prior ultrasound and review of priorexternal notes Minimal risk of morbidity or mortality to the fetus from additionaltesting. Services Provided: ProceduresCode FOLLOW UP [id number] Jayson Tovar DO US * ANTI HIV 1/2 (07/07/2023 1:55 PM CDT) HIV-1/HIV-2 SCREEN Non-Reacti ve Non-Reacti ve 07/07/2023 9:36 PM CDT [facility] Comment:HIV-1 p24 and HIV-1/ HIV-2 Ab Not Detected. Blood BLOOD SPECIMEN / Unknown Venipuncture / Unknown 07/07/2023 1:55 PM CDT 07/07/2023 1:56 PM CDT Isidro Hoyt DO SEND OUTS [facility] [address] [place] [address], * ANTI HCV (02/25/2023 1:47 PM DATABASE ARCHITECT) HEPATITIS C ANTIBODY Non-Reacti ve Non-React steven 02/25/2023 10:20 PM DATABASE ARCHITECT [facility] [employer] Comment:Please note, per www .CDC.gov: If a patient is known to be at high risk of HCV infection, or is symptomatic, and the physician's suspicion of HCV infection is high, HCV RNA testing is often employed and is of diagnostic value, even after an initial negative anti-HCV test result. Blood BLOOD SPECIMEN / Unknown Venipuncture / Unknown 02/25/2023 1:47 PM DATABASE ARCHITECT 02/25/2023 1:49 PM DATABASE ARCHITECT Isidro Hoyt DO SEND OUTS [facility] LAB[facility]ATORY [address] [place] [address], * LOCAL FLATBED DRIVER THIN PREP PAP SCREEN IMAGED (11/10/2020 8:58 AM CDT) Case Report Gynecologic Cytology Report ? Case: [id number] ? Authorizing Provider: ??Vashti Alonso PA ?Collected: ? 11/10/2020 0858 ? Ordering Location: ? [facility] ?? Received: ?11/10/2020 1001 ? Clinic ? First Screen: ?Bean Parsons ? Specimen: ?LOCAL FLATBED DRIVER ThinPrep Vial Screening, Cervical ? 11/21/2020 3:51 PM CDT [facility] INTERPRETATION/ RESULT NEGATIVE FOR INTRAEPITHELIAL LESION OR MALIGNANCY (NIL) (none) 11/21/2020 3:51 PM CDT [facility] IMEN ADEQUACY Satisfactory for evaluation Endocervical component present 11/21/2020 3:51 PM CDT [facility] HPV REQUEST HPV if ASCUS 11/21/2020 3:51 PM CDT [facility] Date of LMP 11/06/20 11/21/2020 3:51 PM CDT [facility] Last Pap Date 08/27/17 11/21/2020 3:51 PM CDT [facility] Last Pap Result NIL 3:51 PM CDT [facility] Abnormal Pap or Conrad Bx in last 5 years No 11/21/2020 3:51 PM CDT [facility] Menstrual Status Regular Periods 11/21/2020 3:51 PM CDT [facility] Conrad Bx Done Today No 11/21/2020 3:51 PM CDT [facility] Additional Information None given 11/21/2020 3:51 PM CDT [facility] Comment: Cytology is screened at [facility] - [address], [place] [address] and [facility] - [address] [place] [address] and [facility] - [address] [place] [address] Interpreted at [facility] - [address], [place] [address] Automated Review Successful 11/21/2020 3:51 PM CDT [facility] Comment:Specimen processed s uccessfully by automated mud mixer device, ThinPrep Imaging System, [employer] Note The pap test is a screening technique, not a diagnostic procedure. It is used primarily to screen for squamous cancers and precursor lesions. Published studies have shown that it is subject to both false negative and false positive results. The pap test should not be used as the sole means to diagnose or exclude pre-malignant and malignant lesions. 11/21/2020 3:51 PM CDT [facility] LABORAT[facility] Other (Cervical) Non-Blood / Unknown 11/10/2020 8:58 AM CDT 11/10/2020 10:01 AM CDT Vashti [facility] PATHOLOGY/CYTOLOGY [facility] LABORATORY [address] [place] [address], from Last 3 Months or Most Recently Relevant to Health Maintenance Care Teams Bicycle Technician Relationship Specialty Start Date End Date Isidro Hoyt DO [address] [place] [address] PCP - General Family Practice 10/23/21
--- NOTE | 2024-01-15 06:26 | PM.OBHPLI ---
OB - H&P: HPI Labor/Induction History of Present Illness Time Seen by Provider: 06:26 Date Seen: 01/15/24 Chief Complaint: The patient is a 33 year old 3 para 1 at 41 weeks gestation by LMP c/w 1st trimester US, who presents for induction of labor due to postdates. Chief complaint: Postdates IOL : 3 Para: 1 Date of last menstrual period: 04/03/23 Estimated date of delivery: 01/08/24 Gestational age based on last menstrual period: 41 Narrative: Lisa Castillo is a 33 year old 3 para 1 at 41 weeks gestation by LMP c/w 1st trimester US, who presents for induction of labor due to postdates. She has been feeling well. Occasional ctxs, nothing regular or consistent. No LOF. +FM. No headaches or vision changes. No recent illness History of Present Dating criteria: based on LMP care: good care Ultrasounds: abnormal US findings (1. large RODNEY 1st trimester US 2. 20wk with FGR and EIF, resolved on level2. 3. Growth US 29 5/7wks EFW 33%) Medical complications: none Labs Blood type: A (+) positive Rubella: immune RPR/VDLR: nonreactive GBS status: negative HBsAG: negative Meds Home Medications and Allergies Allergies Allergy/AdvReac Type Severity Reaction Status Date / Time No Known Drug Allergies Allergy Verified 01/15/24 06:35 OB - H&P: Exam Constitutional: Constitutional: no acute distress Routine HEENT Exam: Head: Present normal inspection Eye: Present normal appearance ENT: Present mucous membranes moist Routine Respiratory Exam: Respiratory: Present CTA bilaterally Routine Cardiovascular Exam: Cardiovascular: RRR Routine Abdominal Exam: Abdominal: Absent tenderness Detailed Labor and Delivery Exam: Patient Gravid: Yes Dilation (cm): 2 Effacement (%): 60 Cervix position: posterior Consistency: medium Cervical ripeness score: 4 Fetus A: station: -3 Amniotic Membrane Status: intact heart rate baseline: 135 monitor accelerations: Present monitor decelerations: None senior living variability: Moderate (11-25) Routine Extremities Exam: Extremities: Absent pedal edema Routine Psychiatric Exam: Present normal affect, normal thought process, cooperative, good insight and good judgment OB - Problem Based A/P Additional Plan (1) 41 weeks gestation of : Status: Acute Plan Induction due to 41wk -Muniz score = 4. plan vaginal cytotec protocol. Induction techniques, expected course and variability reviewed at length in clinic. All ?'s answered then. no further ?'s from pt or spouse today. They are in agreement with plan. -Known GBS negative Delivery/Labor/Induction Plan Plan: induction Induction method: per misoprostol protocol
[2024-01-15] MEDS: miSOPROStoL 25 MCG/0.25 TABLET VAGINAL ×2 (07:04→10:04)
[2024-01-15 08:58] LABS: Basophils Absolute Auto 0.01 K/uL (0.00-0.30); Basophils Percent Auto 0.1 % (0.0-3.0); Eosinophils Absolute Auto 0.08 K/uL (0.00-0.50); Eosinophils Percent Auto 0.8 % (0.0-7.0); Hematocrit 37.6 % (33.0-51.0); Hemoglobin* 12.9 gm/dL (12.0-16.0); Immature Granulocytes Abs Auto 0.03 K/uL (0.00-0.30); Immature Granulocytes Pct Auto 0.3 %; Lymphocytes Percent Auto 20.1 % (20-44); Mean Corpuscular HGB Conc 34 gm/dL (32-36); Mean Corpuscular Hemoglobin 31 pg (26-34); Mean Corpuscular Volume 92 fL (80-100); Monocytes Percent Auto 7.1 % (0.0-11.0); Neutrophils Absolute Auto 6.76 K/uL (1.7-7.0); Neutrophils Percent Auto 71.6 % (42.0-72.0); Platelet Count* 119 K/uL (140-440); RDW Coefficient of Variation % 13.4 % (11.5-15.5); Red Blood Count 4.11 m/uL (4.00-5.20); White Blood Count* 9.45 K/uL (4.50-11.00)
[2024-01-15 09:10] LABS: Slide Review Reflex No
[2024-01-15] MEDS: LACTATED RINGERS 1000 ML 1,000 ML 500 ML IV (10:39)
[2024-01-15] MEDS: LIDOCAINE 2% (PF) 5 ML VIAL EPIDURAL (11:31)
--- NOTE | 2024-01-15 11:35 | PM.ANBPRC ---
PFSH PFS Medical History (Updated 01/15/24 @ 06:44 by Iraida Hoyt DO) Post-dates ?O48.0 - Post-term (ICD-10) No significant medical problems Surgical History (Updated 11/18/21 @ 18:44 by Iraida Hoyt DO) H/O wisdom tooth extraction ?K08.409 - Partial loss of teeth, unspecified cause, unspecified class (ICD-10) Family History Father Asthma Mother No problems noted. Paternal Grandfather Prostate cancer Pacemaker Social History (Updated 11/18/21 @ 18:47 by Iraida Hoyt DO) Narrative: to Fredy. 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 [place] What is your current living situation?: I presently have a place to live Problems where you live: no known problems In the past 12 months, utilities in danger of being shut off: no In past 12 months, lack of transportation kept you from medical appts, meetings, work, or getting things needed for daily living: no In the past 12 mos, have been you worried that your food would run out before you had money to buy more?: never true In the past 12 mos, the food you bought just didn't last and you didn't have money to buy more?: never true Physical activity type: walking Smoking Status: Never smoker How often do you have a drink containing alcohol: never AUDIT-C Alcohol total score: 0 Non-prescribed substance use: denies use How often does anyone, including family, friends and others, physically hurt you: never How often does anyone, including family, friends and others, insult or talk down to you: never How often does anyone, including family, friends and others, threaten you with harm: never How often does anyone, including family, friends and others, scream or curse at you: never Meds Home Medications and Allergies Allergies Allergy/AdvReac Type Severity Reaction Status Date / Time No Known Drug Allergies Allergy Verified 01/15/24 06:35 Results Labs Labs: Laboratory Results - last 24 hr 01/15/24 08:49 WBC 9.45 RBC 4.11 Hgb 12.9 Hct 37.6 MCV 92 MCH 31 MCHC 34 RDW Coeff of Zulema 13.4 Plt Count 119 L Neut % (Auto) 71.6 Lymph % (Auto) 20.1 [place] % (Auto) 7.1 Eos % (Auto) 0.8 Baso % (Auto) 0.1 Neut # (Auto) 6.76 Lymph # (Auto) 1.90 [place] # (Auto) 0.70 Eos # (Auto) 0.08 Baso # (Auto) 0.01 Abs Immat Gran (auto) 0.03 Imm/Tot Granulo (auto) 0.3 Vital Signs Vital Signs: Last Vital Signs Temp 98.2 F 01/15/24 10:10 Pulse 84 01/15/24 11:34 Resp 18 01/15/24 10:10 BP 129/70 01/15/24 11:34 Pulse Ox 100 01/15/24 11:35 Weight: 74.843 kg Height: 165.1 cm Anesthesia Procedures Epidural Insertion Patient Location: OB Start Time: 11:00 Stop Time: 12:00 Start Date: 01/15/24 Stop Date: 01/15/24 Reason for Block: procedure for pain Patient Position: sitting Performed By: Gurpreet Wilson Preanesthetic Checklist: IV checked, risks and benefits discussed, monitors and equipment checked, pre-op evaluation, timeout performed and anesthesia consent Prep: chlorhexidine gluconate Monitoring: blood pressure monitoring, continuous pulse oximetry and heart rate Approach: midline Vertebral Space: lumbar (1-5) Epidural Technique: MARIA FERNANDA saline Needle Type: Tuohy needle Injection Technique: continuous catheter Needle gauge: 17 Needle Length (cm): 10 cm Needle Insertion Depth (cm): 6 Catheter Gauge: 19 Catheter Type: multi-orifice Catheter at skin depth (cm): 14 Test Dose Result: negative and lidocaine 1.5% with epinephrine 1 to 200,000
[2024-01-15] MEDS: ROPIVACAINE 0.2% 100 ml 100 ML 12 MG EPIDURAL (11:47)
[2024-01-15] MEDS: OXYTOCIN 30 unit/500 ML in NS 30 UNIT/500 ML BAG 300 UNIT IVPB (13:00)
--- NOTE | 2024-01-15 13:16 | W.PM.VAGDEL1 ---
Procedure Delivery date: 01/15/24 Procedure Done: Global Procedure Details: The patient is a 33 year-old admitted on 01/15/24 at 41 Weeks, 0 Days gestation for induction due to postdates.? Cervical exam on admission was 2.5 cm/60 % effaced/-3 station with membranes intact in vertex presentation.? Contractions were occasionally felt minutes.? heart rate demonstrated baseline 135 bpm with moderate variability, + accelerations, - decelerations; a category 1 tracing.? She received 2 doses vaginal cytotec and went into active labor at 10:53. She requested and received epidural. AROM occurred at 1240 with clear fluid. ? Labor Analgesia:? Epidural ? Pitocin:? No ? Labor onset:? 10:53am ? Complete:? 1240 ? Pushing:? 1245 ? heart tones during second stage were 120-130's with decels with pushing. ? At 1252 a viable male infant delivered in vertex presentation with hand next to face over intact perineum via spontaneous vaginal delivery.? Infant was placed on maternal abdomen.? Cord was clamped and cut after a 60 second delay.?? weight pending.? 9 at 1 minute and 10 at 5 minutes.? Shoulder dystocia: no.? Nuchal cord: no. ? Placenta delivered spontaneously and complete at 1300 with a 3 vessel cord. ? Mother and were stable after delivery. ? Lacerations:? 1st degree, not requiring repair. She had couple labial and periurethral abrasions, all hemostatic Blood loss: 50 mL. Blood loss measurement type: QBL ? Sponge and needles counts are correct. Events: No Care Intrapartal Events: Labor Induction and Precipitous Labor <3 Hrs Delivery augmentation: rupture of membranes Delivery monitor: external FHT Route of delivery: Laceration description: Perineal - 1st Degree Anesthesia type: Epidural Infant Gender: Male presentation: vertex Placental Delivery Description: Spontaneous Cord Description: 3 Vessels
[2024-01-15] MEDS: IBUPROFEN 600 MG TABLET PO (19:09)
[2024-01-16] MEDS: ACETAMINOPHEN 500 MG TABLET 1000 MG PO (00:17)
[2024-01-16 00:18] VITALS: BP 95/60; PULSE 69; RESP 18; TEMP 36.4; O2SAT 96
[2024-01-16 03:54] VITALS: BP 99/60; PULSE 70; RESP 18; TEMP 36.5; O2SAT 97
[2024-01-16 06:05] LABS: Hemoglobin* 11.4 gm/dL (12.0-16.0)
--- NOTE | 2024-01-16 09:08 | PM.ANPOST ---
Post Anesthesia Note Post Anesthesia Note Patient seen: Inpatient Respiratory Status: adequate Cardiovascular Status: adequate Mental Status: baseline Pain: adequate Temp: baseline Anesthetic awareness: N/A Complications: none Follow care: none
--- NOTE | 2024-01-16 09:52 | PM.OBPNVD1 ---
OB - PN:Subj Subjective Time Seen by Provider: 08:20 Date Seen: 01/16/24 Interval history: Pt seen in routine rounds. . Had 1 large clot last night per pt, she notified nurse who came and evaluated. No bleeding concerns since. Ambulating, voiding, tolerating orals well. Pain controlled. Would like go home later today if possible OB - PN: Obj Exam Physical Exam: Vital signs: Temp Pulse Resp BP Pulse Ox O2 Del Method 97.7 F 70 18 99/60 97 Room Air 01/16/24 03:54 01/16/24 03:54 01/16/24 03:54 01/16/24 03:54 01/16/24 03:54 01/16/24 03:54 Constitutional: Constitutional: no acute distress and cooperative Routine Abdominal Exam: Fundus: Present firm (at umbilicus) OB - PN: Obj Data Labs Labs: Laboratory Results - last 24 hr 01/16/24 05:59 Hgb 11.4 L OB - PN: A/P Delivery Assessment and Plan (1) 41 weeks gestation of : Status: Acute (2) (normal spontaneous vaginal delivery): Status: Acute Plan Doing well, one episode vaginal blood clot last night, not since. Will monitor throughout today. If no further increased bleeding and infant does well, t/c home later today. pain agreement with plan. Plan Plan: routine care
[2024-01-16 10:15] VITALS: BP 109/69; PULSE 69; RESP 18; TEMP 36.4; O2SAT 96
[2024-01-16] MEDS: DOCUSATE SODIUM 100 MG CAPSULE PO (10:58)
--- NOTE | 2024-01-16 16:55 | P.DS_ITS ---
DS: Providers Provider Time Seen by Provider: 16:55 Date Seen: 01/16/24 Date of admission: 01/15/24 05:57 Primary care physician: Iraida Hoyt DO Admitting Clinician: Iraida Hoyt DO Attending Physician on discharge: Iraida Hoyt DO Date of Discharge: 01/16/24 DS: Diagnosis Discharge Diagnosis (1) 41 weeks gestation of : Status: Acute (2) (normal spontaneous vaginal delivery): Status: Acute Exam Const: Vital Signs, click to edit/add: Vital Signs - 24 hr 01/15/24 21:08 01/16/24 00:18 01/16/24 03:54 Temperature 98.3 F 97.5 F L 97.7 F Pulse Rate [Pulse Oximeter] 88 69 70 Respiratory Rate 18 18 18 Blood Pressure [Ri ght Arm] 100/67 95/60 99/60 Pulse Oximetry 97 96 97 Oxygen Delivery Me thod Room Air Room Air Room Air 01/16/24 10:15 Temperature 97.5 F L Pulse Rate [Pulse Oximeter] 69 Respiratory Rate 18 Blood Pressure [Ri ght Arm] 109/69 Pulse Oximetry 96 Oxygen Delivery Me thod Room Air Documenting provider has reviewed patient's vital signs: yes Common normals: no apparent distress General appearance: comfortable : Uterus: U/1 and firm Lochia: scant OB - DS: Summary Hospital Course Hospital Course: The patient is a 33 year old G 3 P 1 at 41 weeks gestation that was admitted to the Center on 01/15/24 for induction for postdates. She received 2 doses cytotec and progressed quickly. She had an uncomplicated vaginal delivery. She delivered a viable male infant. She is breast feeding. the patient has done well. Peripartum Data Infant delivery method: Vaginal Laceration description: Perineal - 1st Degree complications: none [employer] Infant Gender: Male Status at Discharge Functional status at discharge: independent ambulation Time Spent with Patient Time attestation: Total time spent providing and/or coordinating discharge services: Discharge Plan Discharge Disposition: Home, Self-Care Date of Admission: 01/15/24 05:57 Primary Care Provider: Iraida Hoyt Condition: Stable Anticipated Discharge Date/Time: 01/16/24 16:59 Discharge Medications: New cholecalciferol (vitamin D3) [Vitamin D3] 125 mcg (5,000 unit) tablet 125 mcg PO DAILY Qty: 90 3RF Continued acetaminophen 500 mg Tablet 1,000 mg PO Q6H PRNQty: 30 0RF ibuprofen 600 mg Tablet 600 mg PO Q6H PRNQty: 30 0RF Hold Instructions: not taking docusate sodium 100 mg capsule 100 mg PO DAILY Qty: 30 0RF Hold Instructions: not taking pramoxine 1 % Foam 1 applic topical QID PRNQty: 1 0RF Lanolin (HPA) 100 % Cream 1 applic topical Q1H PRNQty: 1 0RF Hold Instructions: not needed at this time Discharge Orders: Discharge Order (Routine); Ordered 01/16/24 Ordered By: Iraida Hoyt Patient Education: OB Vaginal/Breast Feeding Activity Detail: pelvic rest x 6 weeks Discharge Diet: Regular Follow Up Appointments: Iraida Hoyt DO [Primary Care Provider] - (6 week visit) Forms: MyHealth Info Instructions
[2024-01-16 16:59] VITALS: BP 102/66; PULSE 82; RESP 16; O2SAT 98
[2024-01-16 23:56] LABS: Rapid Plasma Reagin (RPR) Non Reactive (Non Reactive)
== END 2024-01-16 18:35 | disposition home or self-care (01) | DRG 807 ==
PROVIDERS: Admitting Provider Family Medicine; PCP Family Medicine; Visit Provider Family Medicine
DX: O48.0 Post-term pregnancy (principal); Z37.0 Single live birth; Z3A.41 41 weeks gestation of pregnancy; O70.0 First degree perineal laceration during delivery
CPT/HCPCS: 01967; 36415; 59200; 85018; 85025; 86592; A9270; J2371; J2795; J7120

== ENCOUNTER 2024-11-21 14:58 | Outpatient (CLI) | payer OTHER, SELFPAY | END 2024-11-21 14:59 | disposition home or self-care (01) | PROVIDERS: PCP Family Medicine; Referring Provider Family Medicine; Visit Provider Physician Assistant | DX: N30.00 Acute cystitis without hematuria (principal); B95.7 Other staphylococcus as the cause of diseases classified elsewhere | CPT/HCPCS: 87086; 87186 ==